=== PATIENT | female | born 1975 | race Caucasian/White ===

== ENCOUNTER 2017-01-11 19:46 | Emergency (ER) | payer OTHER ==
[2017-01-11 19:11] LABS: URINE SOURCE CLEAN CATCH
[2017-01-11 19:16] LABS: URINE APPEARANCE CLEAR; URINE BILIRUBIN NEG (NEG); URINE BLOOD 1+ (NEG); URINE COLOR YELLOW; URINE GLUCOSE NEG (NEG); URINE KETONE NEG (NEG); URINE LEUKOCYTE ESTERASE 1+ (NEG); URINE NITRATE NEG (NEG); URINE PROTEIN NEG (NEG); URINE SPECIFIC GRAVITY 1.006 (1.003-1.035); URINE UROBILINOGEN 0.2 MG/DL (NEG)
[2017-01-11 19:19] LABS: CULTURE INDICATED? YES; URBCS1 AUWI 0-2 /[HPF] (0-2); URINE BACTERIA AUWI 1+ (NEGATIVE); URINE SQUAMOUS EPITHELIAL CELL OCC /[HPF]
[~2017-01-11 19:46] MED LIST: KEFLEX500 M1 PO; LORTAB 5/500 TA1 TA1 PO; NAPROSYN250 M1 PO; NO MEDICATIONS; VOLTAREN50 MG PO; ZITHROMAX1 G/PKT PO
== END 2017-01-11 20:03 | disposition home or self-care (01) ==
LOC: CED 19:46
PROVIDERS: Physician Assistant Medical
DX: N30.90 Cystitis, unspecified without hematuria (principal); F41.9 Anxiety disorder, unspecified; K21.9 Gastro-esophageal reflux disease without esophagitis; F17.210 Nicotine dependence, cigarettes, uncomplicated; Z98.51 Tubal ligation status
CPT/HCPCS: 81003; 84703; 87086; 87088; 87186; 99283